=== PATIENT | male | born 1975 | race Caucasian/White ===

== ENCOUNTER 2022-03-24 13:10 | Emergency (ER) | payer SELFPAY ==
[2022-03-24] MEDS ORDERED: Bupivacaine 0.25% 10 ML VIAL ONE (13:48)
[2022-03-24] MEDS ORDERED: Lidocaine 2% PF 5 ML VIAL ONE (13:48)
[2022-03-24] MEDS ORDERED: HYDROcodone/Acetaminophen 5/325 mg Tablet ONE (14:17)
[2022-03-24] MEDS ORDERED: Bacitracin 1 PK ONE (14:17)
== END 2022-03-24 14:25 | disposition home or self-care (01) ==
LOC: ERS 13:10
DX: S61.215A Laceration without foreign body of left ring finger without damage to nail, initial encounter (principal); W29.8XXA Contact with other powered hand tools and household machinery, initial encounter
CPT/HCPCS: 12001; J2001; S0020